=== PATIENT | male | born 1990 | race Two or more races ===

== ENCOUNTER 2020-08-09 07:37 | Emergency (ER) | payer OTHER ==
[~2020-08-09] VITALS: Ht 170.2 cm; Wt 57.2 kg
== END 2020-08-09 13:24 | disposition home or self-care (01) ==
LOC: ER 07:37
DX: R00.2 Palpitations (principal); Z03.818 Encounter for observation for suspected exposure to other biological agents ruled out

== ENCOUNTER 2021-04-22 08:00 | Outpatient (CLI) | payer OTHER | END 2021-04-22 08:30 | disposition home or self-care (01) | LOC: PPH VACUNA 08:00 | DX: Z23 Encounter for immunization (principal) ==